=== PATIENT | male | born 1990 | race Caucasian/White ===

== ENCOUNTER 2017-12-27 16:10 | Emergency (ER) | payer OTHER, SELFPAY ==
[2017-12-27 16:11] VITALS: BP 142/88; PULSE 70; RESP 19; TEMP 36.5; O2SAT 100; BMI 26.4
--- NOTE | 2017-12-27 16:25 | EKG12_ITS ---
Test Reason : SYNCOPE Blood Pressure : / mmHG Vent. Rate : 065 BPM Atrial Rate : 065 BPM P-R Int : 148 ms QRS Dur : 092 ms QT Int : 396 ms P-R-T Axes : 052 081 057 degrees QTc Int : 411 ms Normal sinus rhythm with sinus arrhythmia Normal ECG Confirmed by EUGENIA DOSHI, BOUBACAR ([id number]), continuity editor BERTHA RETANA ([id number] on 12/31/2017 3:19:13 PM Referred By: TITA Confirmed By:BOUBACAR BELLO MD
--- NOTE | 2017-12-27 16:25 | CT_ITS ---
STUDY: CT BRAIN WITHOUT CONTRAST REASON FOR EXAM: Male, 27 years old. Syncopal episode. RADIATION DOSAGE (If Supplied By Facility): CTDIvol = ( 60.81 ) mGy, DLP = ( 998.67 ) mGycm TECHNIQUE: Transaxial CT imaging of the brain was performed without administration of intravenous contrast material. Individualized dose optimization techniques were used for this CT. COMPARISON: None. FINDINGS: Normal soft tissue structures. Normal calvarium. Normal size ventricles and extra-axial spaces for the patient's age. Normal white matter tracts of the cerebral hemispheres. Normal basal ganglia and thalami. Normal brainstem. Normal cerebellum. There is no intracranial hemorrhage. There are no findings of an acute ischemic infarction. Normal visualized paranasal sinuses. CT/Brain/Head without Contrast IMPRESSION: No acute intracranial process. Electronically Signed: Nikole Wagner MD at 17:38 EDT Tel , Service support ,
--- NOTE | 2017-12-27 16:30 | ED.DCSUM_ITS ---
- ER Visit Summary Date of Service: 12/27/17 Chief Complaint: Syncope History of Present Illness: The patient is a 27 M presenting after syncopal episode. Patient states he was sitting at his desk for several hours at work. He states he stood up, became dizzy and passed out. He hit his face on a table. He has an abrasion to his left upper extremity. He has bleeding from his mouth. His tetanus is up-to-date. He states the dizziness is now improved. He denies chest pain or shortness of breath. Denies other complaints. Physical Examination: Vitals are stable. Patient is afebrile. Alert no acute distress. HEENT exam 2 upper front teeth are broken. He has laceration to lower inner lip that is not thru and thru. Neck is nontender Lungs are clear and equal bilaterally. Heart is regular rate and rhythm. Abdomen is soft nontender nondistended. Extremities are unremarkable. Skin is warm and dry. No focal neurologic deficit. Remainder of exam is unremarkable. Emergency Department Course and Treatment: Patient is given IV fluids. Orthostatics are negative. EKG is sinus rate of 65. CBC, chemistries unremarkable. D-dimer is normal. CT head shows no acute process. Laceration was repaired under sterile conditions. 3, 5-0 Vicryl sutures were placed. Patient tolerated this well. Advised wound care instructions. Advised to follow-up with primary care physician and dentist. Advised return ED if worsening complaints. Disposition: Discharge home Impression: Syncopal episode, mouth laceration, laceration repair This note was generated with [employer] dictation software. It may contain incorrect words, spelling, and punctuation that were not noted in review of the chart prior to signing ED Disposition - Plan for ED Patient: Chief Complaint: Syncope Instructions: ED Laceration Mouth, ED Fainting Unkn Cause Referrals: Danika Kay MD [Primary Care Provider] -
[2017-12-27 16:51] VITALS: BP 118/66; BP 128/67; BP 131/77; PULSE 58; PULSE 62; PULSE 68
[2017-12-27] MEDS: 0.9% Normal Saline 1,000 ML 1000 ML IV (16:59)
[2017-12-27 17:08] LABS: Absolute Lymphocyte Count 3.78 X10^3/ul (0.83-4.51); Absolute Neutrophil Count 2.5 X10^3/uL (2.0-7.7); Basophil# 0.02 X10^3/uL; Basophil% 0.3 % (0-1); Eosinophil# 0.15 X10^3/uL; Eosinophils% 2.1 % (0-5); Hematocrit 45.3 % (40-54); Hemoglobin 15.7 g/dl (13.0-16.5); Lymphocyte # 3.78 X10^3/ul (4.0); Lymphocyte % 53.4 % (19-41); Mean Corp Hgb Conc 34.7 g/gl (32-36); Mean Corpuscular Hgb 29.8 pg (27.0-32.0); Mean Platelet Vol. 10.5 fl (6.2-12.0); Monocyte% 8.5 % (0-10); Neutrophil % 35.3 % (47-70); Platelet Count 212 K/mm3 (150-450); RBC Distribution Width CV 11.8 % (11.6-14.6); RBC Distribution Width SD 36.8 fl (35.1-43.9); Red Blood Count 5.27 M/mm3 (4.6-6.2); White Blood Count 7.1 K/mm3 (4.4-11.0)
[2017-12-27 17:11] LABS: POSITIVE COUNT NO; POSITIVE DIFFERENTIAL NO; POSITIVE MORPHOLOGY NO
[2017-12-27 17:13] LABS: D-Dimer Quantitative (DVT/PE) 0.36 FEU/ug/m (0.27-0.49)
[2017-12-27 17:14] LABS: Anion Gap 4 (5-15); BUN 16 mg/dL (7-18); BUN/Creat Ratio 14.3 RATIO (10-20); Calcium,Total 9.4 mg/dL (8.5-10.1); Chloride 102 mmol/L (98-107); Creatinine, Serum 1.12 mg/dL (0.70-1.30); EST Glomerular Filtration Rate 82 mL/min (>60); Est Glom Filt Rate - Afr Amer 99 mL/min (>60); Estimated Creatinine Clearance 87.82 ml/min; Glucose 100 mg/dL (74-106); Potassium 3.9 mmol/L (3.5-5.1); Sodium Level 138 mmol/L (136-145)
--- NOTE | 2017-12-27 17:57 | ED.DEP ---
ED Disposition - Plan for ED Patient: Chief Complaint: Syncope Instructions: ED Fainting Unkn Cause, ED Laceration Mouth Referrals: Danika Kay MD [Primary Care Provider] -
[2017-12-27 18:40] VITALS: BP 122/80; PULSE 65; RESP 16; O2SAT 100
== END 2017-12-27 18:42 | disposition home or self-care (01) ==
LOC: ED 17:05
PROVIDERS: Emergency Provider Emergency Medicine; Family Provider Internal Medicine; PCP Internal Medicine
DX: R55 Syncope and collapse (principal); S01.511A Laceration without foreign body of lip, initial encounter; W18.39XA Other fall on same level, initial encounter; Y93.89 Activity, other specified; Y92.89 Other specified places as the place of occurrence of the external cause; Y99.0 Civilian activity done for income or pay
CPT/HCPCS: 12011; 70450; 80048; 85025; 85379; 93005; 96360; 96361; 99285; J7030; A4216

== ENCOUNTER → 2021-05-26 11:06 | Outpatient (CLI) | payer OTHER, SELFPAY ==
[2021-05-26 12:10] LABS: Absolute Lymphocyte Count 2.05 X10^3/uL (0.83-4.51); Absolute Neutrophil Count 1.8 X10^3/uL (2.0-7.7); Basophil# 0.03 X10^3/uL; Basophil% 0.7 % (0-1); Eosinophil# 0.08 X10^3/uL; Eosinophils% 1.8 % (0-5); Hematocrit 46.7 % (40-54); Hemoglobin 15.4 g/dL (13.0-16.5); Lymphocyte # 2.05 X10^3/ul (0.83-4.51); Lymphocyte % 46.5 % (19-41); Mean Corpuscular Hgb 29.3 pg (27.0-32.0); Mean Platelet Vol. 10.8 fl (6.2-12.0); Monocyte# 0.43 X10^3/uL; Monocyte% 9.8 % (0-10); NRBC Flagged by Analyzer 0 % (0-5); Neutrophil # 1.81 X10^3/uL (2.7-7.7); Platelet Count 286 K/mm3 (150-450); RBC Distribution Width CV 11.5 % (11.6-14.6); RBC Distribution Width SD 36.7 fl (35.1-43.9); Red Blood Count 5.25 M/mm3 (4.6-6.2); White Blood Count 4.4 K/mm3 (4.4-11.0)
[2021-05-26 12:29] LABS: ALB/GLOB Ratio 1.1 RATIO (0.9-2.4); AST(SGOT) 19 U/L (15-37); Alanine Aminotransfer ALT/SGPT 20 U/L (16-61); Albumin, Serum 4.3 g/dL (3.2-5.0); Alkaline Phosphatase 54 U/L (45-117); Anion Gap 9 (5-15); BUN 13 mg/dL (7-18); BUN/Creat Ratio 10.7 RATIO (10-20); Calcium,Total 9.2 mg/dL (8.5-10.1); Chloride 101 mmol/L (98-107); Cholesterol 189 mg/dL (200); Creatinine, Serum 1.22 mg/dL (0.70-1.30); EST Glomerular Filtration Rate 73 mL/min (>60); Est Glom Filt Rate - Afr Amer 88 mL/min (>60); Glucose 86 mg/dL (74-106); Hemoglobin A1c 5.1 % (3.8-5.6); High Density Lipoprotein 59 mg/dL; Potassium 4.7 mmol/L (3.5-5.1); Protein, Total 8.3 g/dL (6.4-8.2); Sodium Level 138 mmol/L (136-145); Triglycerides 77 mg/dL; Very Low Density Lipoprotein 15 mg/dL (5-40)
== END ==
PROVIDERS: PCP Internal Medicine; Visit Provider Internal Medicine
DX: Z13.1 Encounter for screening for diabetes mellitus (principal); Z13.220 Encounter for screening for lipoid disorders
CPT/HCPCS: 36415; 80053; 80061; 83036; 85025

== ENCOUNTER → 2025-02-08 | Outpatient (CLI) | payer OTHER, SELFPAY ==
--- NOTE | 2025-02-08 09:30 | RAD_ITS ---
PROCEDURE: HAND MIN 3 VIEWS 02/08/2025 REASON FOR EXAM: LEFT HAND PAIN, SCAPHOID TECHNIQUE: 4 view(s) of the left hand COMPARISON: None. FINDINGS: Normal visualized carpal bones. Normal first metacarpus. Normal second through fifth metacarpi. Normal phalanges. There is no demonstrated fracture. Normal carpal articulations. Normal carpometacarpal (CMC) articulation of the thumb. Normal metacarpophalangeal (MCP) joint of the thumb. Normal interphalangeal (IP) joint of the thumb. Normal second through fifth carpometacarpal (CMC) joints. Normal second through fifth metacarpophalangeal (MCP) joints. Normal proximal interphalangeal (PIP) and distal interphalangeal (DIP) joints of the second through fifth fingers. RAD/Hand Min 3 Views IMPRESSION: No evidence for acute abnormality. Reading Location: [facility]
--- OUTSIDE RECORDS SUMMARY | 2025-02-08 18:41 | XMS RPT_ITS | CCD ---
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 Garnica Primary Care Provider Dr. Danika Kay MD Attending Provider Problems Problem Classification Problem Date Documented Da te Episodic/Chronic Osteoarthritis (2 sources) Primary osteoarthritis, left shoulder; Translations: [Arthropathy] Onset: 08-10-2022 08-10-2022 Chronic Other connective tissue disease (1 source) Hand pain; Translations: [Pain in left hand] 02-08-2025 Episodic Other non-traumatic joint disorders (1 source) Other specified joint disorders, left shoulder; Translations: [Other specified joint disorders, left shoulder] Onset: 08-10-2022 Episodic Other non-traumatic joint disorders (1 source) Disorder of shoulder; Translations: [Other specified joint disorders, left shoulder] 08-10-2022 Episodic Other screening for suspected conditions (not mental disorders or infectious disease) (2 sources) Patient encounter status; Translations: [Encounter for screening for diabetes mellitus] 05-26-2021 Episodic Skin and subcutaneous tissue infections (1 source) Paronychia of finger; Translations: [Cellulitis of right finger] 06-23-2023 Episodic Results Test Name Value Interpretation Reference Range Facility Orthopedic Visit Reporton Orthopedic Visit Report [facility] [address] [place] [address] [address] [place], [place] [address] OFFICE VISIT Date of Service: 08/10/22 MR#: [id number] Acct: [id number] Name: MONCHO COOMBS Rep #: [id number] : 1990 Provider: Dr. Amilcar cedeno MD Age/Sex: 32/M Location: [facility] [place] Status: Signed Intake Vital Signs 05/26/21 09:42 08/10/22 08:47 Height 5 ft 6 in 5 ft 6 in Weight: 165 lb BMI 26.6 Intake Visit Reasons: LEFT SHOULDER Is patient in pain?: Yes Pain scale (1-10): 1 Allergies No Known Allergies Allergy (Verified 08/10/22 08:47) Medications NK 12/27/17 [History Confirmed 08/10/22] [facility] Medical History (Updated 08/10/22 @ 08:55 by Amilcar Romero MD) Arthrosis of left acromioclavicular joint Impingement of left shoulder Wrist fracture Surgical History S/P appendectomy Social History (Updated 08/10/22 @ 08:50 by Bea Rocha) Smoking Status: Never smoker alcohol intake: current alcohol intake frequency: a few times a week Alcohol type: hard liquor substance use type: does not use what type of physical activity do you participate in: weight training frequency: 3-4 times per week HPI LEFT SHOULDER Details: Parts of this documentation were recorded by a scribe, this documentation accurately reflects the service provided and the decisions made by me, Dr. Amilcar Romero MD 08/10/22 0845. MONCHO COOMBS is a 32 year old M here today for left shoulder pain, worse with reaching across, muscle weakness with extension, doing overhead shoulder press, hard to push it up. Since then has gotten better, less pain, last week some muscle weakness. Still kind of there was at the gym last Wednesday. Location of the pain is upper lateral shoulder. 4 day rotation chest once a week. RHD. 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 Ortho Exam General General: Yes no acute distress Neurologic: Yes alert and Yes oriented x3 Psychologic: Yes reasonable and appropriate Left Shoulder Skin/Wound: Yes CDI, No ecchymosis, No erythema and No swelling Testing: Yes Hawkin's, Yes Neer's, No Speed's, No TTP Biceps, Yes TTP AC Joint, No Drop Arm, Yes AROM-Forward Elevation 0-180, Yes AROM-External Rotation at side 0-60, No Sulcus Sign, No translation, Yes empty can and No jerk SHOULDER: strength FE 5/5 and ER 5/5 full ROM, pain with cross body adduction, slight impingement signs, pain at ACJ and RC insertion. Supplemental Info X-rays taken today of the left shoulder demonstrate mild AC joint arthrosis type II downsloping of the acromion no acute abnormalities glenohumeral joint space well-maintained. Coding Level of Care Code Off vis,new,level 3 Diagnoses Impingement of left shoulder M25.812 Arthrosis of left acromioclavicular joint M19.012 Assessment and Plan Assessment and Plan (1) Impingement of left shoulder: Status: Acute Plan: 32-year-old man he seems to have rotator cuff tendinitis as well as likely weightlifter shoulder AC joint arthrosis and irritation. Recommend rest ice anti-inflammatories activity modifications at home or in clinic physical therapy he declined formal referral for this. He could try a cortisone injection although this is not causing him to wake up at night or nighttime symptoms and he is fairly young for this with good range of motion and strength of the shoulder. I advised against heavy overhead pressing for now. He can gradually work back into his normal routines keep an eye on his pain. He will not start an anti-inflammatory at this time this is slowly getting better however if after 6 weeks of conservative management the pain is the same or worse than I would like him to follow-up in the office to order an MRI to assess the tendons. He understood had no further questions or concerns. (2) Arthrosis of left acromioclavicular joint: Status: Acute Orders: Orders Shoulder min 2 Views Today M19.012 - Primary osteoarthritis, left shoulder, M25.812 - Other specified joint disorders, left shoulder 08/10/22920 Date [facility]: Date (if applicable) CC: Dr. Danika Kay MD [facility] Shoulder min 2 Viewson 08-10 Shoulder min 2 Views [facility] [address] [place] [address] Shoulder min 2 Views MR#: [id number] Acct: [id number] Name: MONCHO COOMBS Rep #: [id number] : 1990 M 32 From: Jerrell ochoa MD PCP: Dr. Danika Kay MD Status: DEP AMB Study: Shoulder min 2 Views Date of Exam: 08/10/22 Exam# [id number] Ordering Dr: Amilcar Romero MD STUDY: X-RAY - LEFT SHOULDER REASON FOR EXAM: Male, 32 years old. Shoulder pain TECHNIQUE: 4 view(s) of the shoulder. COMPARISON: None. FINDINGS: Normal glenohumeral articulation. Normal acromioclavicular joint. Normal acromion. Normal humeral head and visualized proximal humerus. The soft tissue structures are unremarkable. Normal visualized pulmonary apex. RAD/Shoulder min 2 Views IMPRESSION: Normal x-ray examination of the shoulder. Electronically Signed: Jerrell Toledo MD at 9:24 EST , CC: Dr. Danika Kay MD; Dr. Amilcar Romero MD Gas Blender: Signed [facility] CNOVon 07-20-2018 CNOV Office Visit (INTMWS) RODNEY COOMBS ([id number]) 1990 [facility] Time Provider Xsfiydlocw59/21/18 10:00 AM ORALIA CONN During your visit today, we recorded the following information about you: Pulse Respiration Blood pressure Weight 67/minute 12/minute 130/64 73.5 kg Height 1.689 Ximena CONN MD 07/20/2018 10:54 AM SignedReason for VisitPatient presents with:Established Patient: biometric formsMoncho Coombs is a 27 year old male who presents here today for CPE.Health MaintenanceThere are no preventive care reminders to display for this patient.HPIDiet- well controlledSleep- sleeps around 7 hours a dayStress- not much stress, 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- work out in the gym around 3 times a weekNo problem-specific Assessment AND Plan notes found for this encounter.PAST MEDICAL HISTORYDiagnosis Date- Healthy adult on routine physical examinationPAST SURGICAL HISTORYProcedure Laterality Date- LAPAROSCOPY, SURGICAL, APPENDECTOMY 5-1-06IMTMWZ HISTORYProblem Relation Age of Onset- Diabetes Maternal GrandfatherSocial HistorySubstance Use Topics- Smoking status: Never Smoker- Smokeless tobacco: Never Used- Alcohol use 1.0 oz/week 1 Shots of liquor per week Comment: 3-4 shots approx every other month when celebrtingPast medical history, appointments, medications, allergies reviewed.Pertinent Lab/Diagnostic Studies are reviewed and discussed todayNo current outpatient prescriptions on file.Review of SystemsCONSTITUTIONAL: No fevers, chills, nightsweats, unintended weight lossHEENT: Denies frequent or severe heaches, nasal congestion/sinus symptoms,problematic allergy problems.EYES: No diplopia or blurry vision.CARDIOVASCULAR: No chest pain, dyspnea, palpitations, orthopnea, PND, ankleedema.PULM: No dyspnea, unexplained cough.GI: No dysphagia/odynophagia, problematic reflux, constipation, diarrhea,changes in stool habits, hematochezia, melena.: No new urinary complaints, including dysuria, gross hematuria or pyuria.NEURO: No new balance problems, peripheral weakness/paresthesias or numbnessof concern.MUSC-SKEL: No new joint pain, swelling, or erythema.PSY: No concerns regarding depression, anxiety or panic.INTEGUMENTARY: No new skin changes (rash, new or changing mole, new growth)Physical ExamBP 130/64 (BP Site: Left Arm, BP Position: Sitting, BP Cuff Size: RegularAdult) Pulse 67 Resp 12 Ht 168.9 cm (5' 6.5) Wt 73.5 kg (162 lb) SpO2 98% BMI 25.76 kg/m?General appearance: Well appearing, alert, in no acute distress, well-hydrated,well nourished.Skin: Skin color, texture, turgor normal, no suspicious rashes or lesionsHead: Normocephalic, no masses, lesions, tenderness or abnormalitiesEyes: Anicteric sclera. Pupils are equally round and reactive to light.Extraocular movements are intact.Ears: External ears normal, canals clearNose/Sinuses: Nares normal, septum midline, mucosa normal, no drainage or sinustendernessOropharynx : Lips, mucosa, and tongue normal, teeth and gums normal, oropharynxnormalNeck: Supple, no adenopathy; thyroid symmetric, normal size, no bruitsBack: Normal examLungs: Lungs clear to auscultation. No wheezing, rhonchi, ralesHeart: RRR without murmur, gallop, or rubs. No ectopyAbdomen: Normal abdominal exam, Abdomen soft, non-tender. Bowel sounds normal.No masses, organomegalyExtremities: No deformities, edema, skin discoloration, clubbing or cyanosis.Good capillary refill.Musculoskeletal: No joint swelling, deformity, or tendernessPeripheral pulses: NormalNeuro: Gait normal. Reflexes normal and symmetric. Sensation grossly intact.ASSESSMENT/PLAN:1. Annual physical exam - ICD9: V70.0, ICD10: Z00.00- Recommended regular aerobic exercise.- Follow up for annual exam in one year.Needed biometric papers to be filled and signedAngelia PEREZ Provider: SELF [200]Allergies As of Date: 07/20/2018(No Known Allergies)Date Reviewed: 07/20/2018Reviewed by: Agata Merritt LPN - Fully AssessedReason for Visit: Established Patient [175] Cmt: biometric formsPrimary Visit Diagnosis:Annual physical exam [Z00.00]Problem List As Of Date 07/20/2018 Noted Resolved SPRAIN OF ANKLE NOS [S93.409A] INVALID FOR* Appendicitis [K37] INVALID FOR* Status:Closed by ORALIA CONN MD on 07/20/18 Normal [facility] PROGRESSon 07-20-2018 Protein mass conc HNO ID: [id number] thor: Oralia Epperson: (none)Author Type: PhysicianType: Progress NotesFiled: 07/20/2018 10:54 AMNote Text:Reason for VisitPatient presents with:Established Patient: biometric formsMoncho Coombs is a 27 year old male who presents here today for CPE.Health MaintenanceThere are no preventive care reminders to display for this patient.HPIDiet- well controlledSleep- sleeps around 7 hours a dayStress- not much stress, 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- work out in the gym around 3 times a weekNo problem-specific Assessment AND Plan notes found for this encounter.PAST MEDICAL HISTORYDiagnosis Date- Healthy adult on routine physical examinationPAST SURGICAL HISTORYProcedure Laterality Date- LAPAROSCOPY, SURGICAL, APPENDECTOMY 5-6-69QBIAML HISTORYProblem Relation Age of Onset- Diabetes Maternal GrandfatherSocial HistorySubstance Use Topics- Smoking status: Never Smoker- Smokeless tobacco: Never Used- Alcohol use 1.0 oz/week 1 Shots of liquor per week Comment: 3-4 shots approx every other month when celebrtingPast medical history, appointments, medications, allergies reviewed.Pertinent Lab/Diagnostic Studies are reviewed and discussed todayNo current outpatient prescriptions on file.Review of SystemsCONSTITUTIONAL: No fevers, chills, nightsweats, unintended weight lossHEENT: Denies frequent or severe heaches, nasal congestion/sinussymptoms, problematic allergy problems.EYES: No diplopia or blurry vision.CARDIOVASCULAR: No chest pain, dyspnea, palpitations, orthopnea, PND,ankle edema.PULM: No dyspnea, unexplained cough.GI: No dysphagia/odynophagia, problematic reflux, constipation, diarrhea,changes in stool habits, hematochezia, melena.: No new urinary complaints, including dysuria, gross hematuria orpyuria.NEURO: No new balance problems, peripheral weakness/paresthesias ornumbness of concern.MUSC-SKEL: No new joint pain, swelling, or erythema.PSY: No concerns regarding depression, anxiety or panic.INTEGUMENTARY: No new skin changes (rash, new or changing mole, newgrowth)Physical ExamBP 130/64 (BP Site: Left Arm, BP Position: Sitting, BP Cuff Size: RegularAdult) Pulse 67 Resp 12 Ht 168.9 cm (5' 6.5) Wt 73.5 kg (162lb) SpO2 98% BMI 25.76 kg/m?General appearance: Well appearing, alert, in no acute distress,well-hydrated, well nourished.Skin: Skin color, texture, turgor normal, no suspicious rashes or lesionsHead: Normocephalic, no masses, lesions, tenderness or abnormalitiesEyes: Anicteric sclera. Pupils are equally round and reactive to light.Extraocular movements are intact.Ears: External ears normal, canals clearNose/Sinuses: Nares normal, septum midline, mucosa normal, no drainage orsinus tendernessOropharynx: Lips, mucosa, and tongue normal, teeth and gums normal,oropharynx normalNeck: Supple, no adenopathy; thyroid symmetric, normal size, no bruitsBack: Normal examLungs: Lungs clear to auscultation. No wheezing, rhonchi, ralesHeart: RRR without murmur, gallop, or rubs. No ectopyAbdomen: Normal abdominal exam, Abdomen soft, non-tender. Bowel soundsnormal. No masses, organomegalyExtremities: No deformities, edema, skin discoloration, clubbing orcyanosis. Good capillary refill.Musculoskeletal: No joint swelling, deformity, or tendernessPeripheral pulses: NormalNeuro: Gait normal. Reflexes normal and symmetric. Sensation grosslyintact.ASSESSMENT/ PLAN:1. Annual physical exam - ICD9: V70.0, ICD10: Z00.00- Recommended regular aerobic exercise.- Follow up for annual exam in one year.Needed biometric papers to be filled and signedORALIA CONN MD Normal [facility] Basic Metabolic Panlon 06-24 Anion gap 3 molar conc 16 mmol/L Normal 9-18 [facility] Comment on above: Performed By: #### B DIANE, LIPB ####[place] [id number] [place] [phone] Calcium mass conc 10.0 mg/dL Normal 8.5-10.2 [facility] Comment on above: Performed By: #### B DIANE, LIPB ####[facility] [place] [phone] Chloride molar conc 100 mmol/L Normal 97-105 [facility] Comment on above: Performed By: #### Kory CONTRERAS, LIPB ####[facility] [address] [place] [phone] CO2 molar conc 24 mmol/L Normal 22-30 [facility] Comment on above: Performed By: #### Kory CONTRERAS, LIPB ####[facility] [address] [place] [phone] Creatinine mass conc 1.10 mg/dL Normal 0.73-1.22 [facility] Comment on above: Performed By: #### Kory CONTRERAS, LIPB ####[facility] [address] AveCSherry Ville [phone] eGFR- Amer. >60 Normal [facility] Comment on above: Performed By: #### Kory CONTRERAS, LIPB ####[facility] [address] [place] [phone] GFR/1.73 sq M predicted among non-blacks MDRD vol rate/area (S/P/Bld) mL/min/{1.73_m2} Normal [facility] Comment on above: Result Comment: eGFR (Estimated GFR) Units of measure: mL/min/1.73 meters squaredeGFR is derived from the reexpressed MDRD Study equation using the following parameters: serum creatinine, age, gender and race. The creatinine assay has been calibrated to be traceable to IDMS.An eGFR <60 mL/min/1.73m2 for >3 months is consistent with chronic kidney disease. Refer to KDOQI guidelines for clinical interpretation.In patients with unstable renal function, e.g. those with acute kidney injury, the eGFR may not accurately reflect actual GFR. Performed By: #### B ANNE CONTRERAS ####[facility] [place], [place] [phone] Glucose mass conc 84 mg/dL Normal 74-99 [facility] Comment on above: Result Comment: The [place] Diabetes Association (ADA) provides guidance for cutoff values for fasting glucose and random glucose. The ADA defines fasting as no caloric intake for at least 8 hours. Fasting plasma glucose results between 100 to 125 mg/dL indicate increased risk for diabetes (prediabetes).Fasting plasma glucose results greater than or equal to 126 mg/dL meet the criteria for diagnosis of diabetes. In the absence of unequivocal hyperglycemia, results should be confirmed by repeat testing. In a patient with classic symptoms of hyperglycemia or hyperglycemic crisis, random plasma glucose results greater than or equal to 200 mg/dL meet the criteria for diagnosis of diabetes.Reference: Standards of Medical Care in Diabetes 2016, [place] Diabetes Association. Diabetes Care. 2016.39(Suppl 1). Performed By: #### B ANNE CONTRERAS ####[address] [phone] Potassium molar conc 4.2 mmol/L Normal 3.7-5.1 [facility] Comment on above: Performed By: #### ANNE Horn MP ####[facility] [place], [place] [phone] Sodium molar conc 140 mmol/L Normal 136-144 [facility] Comment on above: Performed By: #### B ANNE CONTRERAS ####[facility] [place], [place] [phone] Urea nitrogen mass conc 12 mg/dL Normal 9-24 [facility] Comment on above: Performed By: #### B ANNE CONTRERAS ####[place] [id number] [place], [place] [phone] Lipid Panel, Basicon 10-26-2 018 Cholesterol in HDL mass conc 53 mg/dL Normal >39 [facility] Comment on above: Result Comment: 40-5 9 mg/dL, Acceptable>59 mg/dL, High: Negative risk factor for coronary heart disease<40 mg/dL, Low: Positive risk factor for coronary heart disease Performed By: #### B DIANE, LIPB ####[place] [phone] Cholesterol in LDL mass conc 101 mg/dL High <100 [facility] Comment on above: Result Comment: <100 mg/dL, Optimal 100-129 mg/dL, Near optimal/above optimal 130-159 mg/dL, Borderline high 160-189 mg/dL, High>189 mg/dL, Very highSecondary prevention optimal LDL Cholesterol levels are recommended to be < 70 mg/dL Performed By: #### Kory CONTRERAS, LIPB ####[place] [phone] Cholesterol mass conc 178 mg/dL Normal <200 [facility] Comment on above: Result Comment: <200 mg/dL, Desirable 200-239 mg/dL, Borderline high>239 mg/dL, High Performed By: #### Kory CONTRERAS, LIPB ####[address] [phone] Fasting Time 12 hrs Normal [facility] Comment on above: Performed By: #### Kory CONTRERAS, LIPB ####[address] [phone] LDL:HDL Ratio 1.91 Normal <2.54 [facility] Comment on above: Result Comment: Refe nataliia:1. National Cholesterol Education Program ATP III Guideline At-A-Glance Quick Desk Reference: National Heart, Lung, and Blood Cotton. National Institutes of Health. 2001: NIH Publication No. 01-3305.2. An International Atherosclerosis Society position paper: global recommendations for the management of dyslipidemia: executive summary, Atherosclerosis. 2014: 232(2):410-413. Performed By: #### B MP, LIPB ####[place] [phone] Non HDL Cholesterol 125 mg/dL Normal <130 [facility] Comment on above: Result Comment: <130 mg/dL, Optimal 130-159 mg/dL, Near optimal/above optimal 160-189 mg/dL, Borderline high 190-219 mg/dL, High>219 mg/dL, Very highSecondary prevention optimal non HDL Cholesterol levels are recommended to be < 100 mg/dL Performed By: #### B DIANE, LIPB ####[place] [phone] TC:HDL Ratio 3.36 Normal <5.10 [facility] Comment on above: Performed By: #### B DIANE, LIPB ####[place] [phone] Triglyceride mass conc 118 mg/dL Normal <150 [facility] Comment on above: Result Comment: <150 mg/dL, Normal 150-199 mg/dL, Borderline high 200-499 mg/dL, High>499 mg/dL, Very high Performed By: #### B MP, LIPB ####[place] [phone] VLDL Cholesterol 24 mg/dL Normal <30 [facility] Comment on above: Performed By: #### B DIANE, LIPB ####[phone] Vital Signs Date Time Vital Sign Value Performing Clinician Lanny maradiaga 02-08-2025 08:27-0400 Body height 167.[address] Danika Kay MD Work Phone: [facility] 02-08-2025 08:27-0400 Body mass index (BMI) [Ratio] 27.1 kg/m2 Dr. Danika Kay MD Work Phone: [facility] 02-08-2025 08:27-0400 Body temperature 98.6 [degF] Dr. Danika Kay MD Work Phone: [facility] 02-08-2025 08:27-0400 Body weight 76.[address] Danika Kay MD Work Phone: [facility] 02-08-2025 08:27-0400 Diastolic blood pressure 84 mm[Hg] Dr. Danika Kay MD Work Phone: [facility] 02-08-2025 08:27-0400 Heart rate 58 /min Dr. Danika Kay MD Work Phone: [facility] 02-08-2025 08:27-0400 Respiratory rate 16 /min Dr. Danika Kay MD Work Phone: [facility] 02-08-2025 08:27-0400 SaO2% (BldA) [Mass fraction] 98 % Dr. Danika Kay MD Work Phone: [facility] 02-08-2025 08:27-0400 Systolic blood pressure 146 mm[Hg] Dr. Danika Kay MD Work Phone: [facility] Encounters Encounter Date Encounter Type Care Provider Facility Start: 02-08-2025 End: 02-08-[address] Danika Kay MD Work Phone: [facility] Work Phone: Start: 02-08-2025 End: 02-08-[address] Danika Kay MD -[facility] Work Phone: Start: 08-10-2022 End: 08-10-2022 ambulatory Danika Kay Facility:[facility] [place] Start: 05-26-[address] David Kay MD Work Phone: [facility] Start: 07-20-2018 End: 07-22-2018 Patient encounter procedure [facility] Start: 06-24-2018 Encounter for genera l adult medical examination without abnormal findings [facility] Start: 06-24-2018 End: 06-24-2018 Patient encounter procedure ORALIA RITTERMARY [facility] Plan of Treatment Date Care Activity Detail Author XR Hand GE 3 Views [facility] Payers Date Payer Category Payer Unknown [id number] 2022 Self-pay Unknown [id number] Unknown [id number] Unknown [id number] Social History Date Type Detail Facility Start: 06-23-2023 Tobacco smoking stat [facility] Never smoked tobacco (finding) [facility] Start: 1990 Sex Assigned At Male W [facility] Evaluation note Note Date & Type Note Facility Evaluation note No assessment information availa ble [facility] Work Phone: Reason for referral (narrative) Note Date & Type Note Facility Reason for referral (narrative) No reason for referral information available [facility] Work Phone: Summary Purpose Family History No Family History Records FoundNo Family History Records Found Advance Directives Advance Directive Response Recorded Date/ Time Advance Directives No January 02, 2015 10:00pm Chief Complaint and Reason for Visit Chief Complaint Admit Date Lt Finger Pain February 08, 2025 8:12 am Additional Source Comments (unrecognized sect ion and content) No Status Records FoundNo Status Records Found INFORMATION SOURCE (unrecogn ized section and content) DATE CREATED AUTHOR 2018 [facility] DATE CREATED AUTHOR AUTHOR'S ORGANIZ ATION 08/10/2022 [facility] Care Teams (unrecognized sec tion and content) Team Status: Active Member Role Status Dates Dr. Danika Kay MD Family Provider Active Dr. Danika Kay MD Primary Care Provider Active Team Status: Inactive Member Role Status Dates Dr. Danika Kay MD Primary Care Provider Active Start: February 08, 2025 End: February 08, 2025 Dr. Danika Kay MD Attending Provider Active Start: February 08, 2025 End: February 08, 2025 Goals (unrecognized section and content) Goals may be documented in a n alternate section FOR RECORDS PERTAINING TO PATIENTS WHO ARE OR HAVE BEEN ENROLLED IN A CHEMICAL DEPENDENCY/SUBSTANCEABUSE PROGRAM, SOME INFORMATION MAY BE OMITTED. This clinical summary was aggregated from multiple sources. Caution should be exercised in using it in the provision of clinical care. This summary normalizes information from multiple sources, and as a consequence, information in this document may materially change the coding, format and clinical context of patient data. In addition, data may be omitted in some cases. CLINICAL DECISIONS SHOULD BE BASED ON THE PRIMARY CLINICAL RECORDS. [facility] provides no warranty or guarantee of the accuracy or completeness of information in this document.
== END | disposition home or self-care (01) ==
LOC: RAD 09:12
PROVIDERS: PCP Internal Medicine; Referring Provider Internal Medicine; Visit Provider Internal Medicine
DX: M79.642 Pain in left hand (principal)
CPT/HCPCS: 73130